=== PATIENT | male | born 1985 | race Caucasian/White ===

== ENCOUNTER 2017-06-05 13:35 | Emergency (ER) | payer SELFPAY ==
[~2017-06-05] VITALS: Ht 180.3 cm; Wt 90.0 kg
[2017-06-05 13:37] VITALS: BP 138/92; PULSE 68; RESP 24; TEMP 97.8; O2SAT 100
--- NOTE | 2017-06-05 13:52 | PD ---
HPI . left shoulder pain for 5 days Chief Complaint: Injury Time Seen by Provider: 13:55 Travel History International Travel<30 days: No Contact w/Intl Traveler<30days: No Traveled to known affect area: No History of Present Illness HPI 32-year-old male here with complaints of left shoulder pain. Patient says that he hurt his shoulder about 5 days ago when he was preparing for the [employer]. He denies any dislocation. He has range of motion, however it is limited due to pain. PFSH Past Medical History Diminished Hearing: No Past Surgical History Abdominal Surgery: Yes (PYLORIC STENOSIS) Other Surgery: Yes (SURGERY FOR PYLORIC STENOSIS A BABY) Social History Alcohol Use: Yes Tobacco Use: Yes Substance Use: No Allergies-Medications (Allergen,Severity, Reaction): Coded Allergies: lithium (Unverified Adverse Reaction, Unknown, THYROID DISORDER, 05/07/17) STATES IT GAVE HIM THYROID DISORDER & WEIGHT GAIN Reported Meds & Prescriptions Reported Meds & Active Scripts Active No Active Prescriptions or Reported Medications Review of Systems General / Constitutional: No: Fever Eyes: No: Visual changes HENT: No: Headaches Cardiovascular: No: Chest Pain or Discomfort Respiratory: No: Shortness of Breath Gastrointestinal: No: Abdominal Pain Genitourinary: No: Dysuria Musculoskeletal: Positive: Pain (left shoulder ) Skin: No Rash Neurologic: No: Weakness Psychiatric: No: Depression Endocrine: No: Polydipsia Hematologic/Lymphatic: No: Easy Bruising Physical Exam Narrative GENERAL: AAO x 3, no acute distress, Well-nourished, well-developed patient. SKIN: Warm and dry. No visible rashes or bruising. HEAD: Normocephalic and atraumatic. EYES: No scleral icterus. No injection or drainage. ENT: No nasal drainage noted. Mucous membranes pink. Airway patent. NECK: Supple, trachea midline. No JVD. CARDIOVASCULAR: Regular rate and rhythm without murmurs, gallops, or rubs. RESPIRATORY: Breath sounds equal bilaterally. No accessory muscle use. No rhonchi or rales. GASTROINTESTINAL: visual inspection normal EXTREMITIES: No cyanosis or edema. ROM left shoulder limited due to pain, internal rotation causes pain. BACK: No obvious deformity. NEURO: CN II-12 intact PSYCH: AAO x 3, normal affect. Data Data Last Documented VS Vital Signs Date Time Temp Pulse Resp B/P (MAP) Pulse Ox O2 Delivery O2 Flow Rate FiO2 06/05/17 13:46 Room Air 06/05/17 13:37 97.8 68 24 138/92 (107) 100 Orders Orders Ketorolac Inj (Toradol Inj) (06/05/17 14:00) Orphenadrine Inj (Norflex Inj) (06/05/17 14:00) Orphenadrine Inj (Norflex Inj) (06/05/17 14:01) Ketorolac Inj (Toradol Inj) (06/05/17 14:01) MDM Medical Decision Making Medical Screen Exam Complete: Yes Emergency Medical Condition: Yes Medical Record Reviewed: Yes Differential Diagnosis left shoulder pain, less likely dislocation, rotator cuff injury Narrative Course 32 year-old male here with complaints of left shoulder pain. On examination he does not appear to have any bony abnormality. I suspect a rotator cuff injury. I do not believe imaging is indicated. He has full range of motion of this joint, however it is limited due to pain. I recommend ibuprofen and Aleve. I provided him with a sling. Toradol and Norflex here in the ED. If his pain persists past 7-10 days, he will need to follow-up with primary care provider. I explained that ultimately he will need MRI imaging. Patient verbalized understanding of instructions, questions were answered, and thanked me for their care. I advised them if their condition worsens, please return to the nearest emergency room for further care. Diagnosis Primary Impression: Left shoulder pain Qualified Codes: M25.512 - Pain in left shoulder Additional Impression: Rotator cuff injury Qualified Codes: S46.001A - Unspecified injury of muscle(s) and tendon(s) of the rotator cuff of right shoulder, initial encounter Patient Instructions: General Instructions Additional Instructions: Please return to emergency department if your symptoms return or worsen. Follow up with your primary care provider. Ibuprofen and Aleve as needed. If pain persists past 7-10 days, follow-up with your primary care provider. Med/Other Pt SpecificInfo: No Change to Meds Scripts No Active Prescriptions or Reported Meds Disposition: 01 DISCHARGE HOME Condition: Stable Rosalia Fierro Jun 05, 2017 13:52
[2017-06-05] MEDS ORDERED: KETOROLAC TROMETHAMINE 60 MG/2 ML (IM) VIAL IM ONE ×2 (14:00→14:01)
[2017-06-05] MEDS ORDERED: ORPHENADRINE INJ 60 MG/2 ML AMP IM ONE (14:00)
[2017-06-05] MEDS ORDERED: ORPHENADRINE INJ 60 MG/2 ML AMP ONE (14:01)
== END 2017-06-06 13:25 | disposition home or self-care (01) ==
LOC: NETRI 13:35 → EDTENT 06-06 13:25
DX: M25.512 Pain in left shoulder (principal); S46.001A Unspecified injury of muscle(s) and tendon(s) of the rotator cuff of right shoulder, initial encounter; X58.XXXA Exposure to other specified factors, initial encounter; X37.0XXA Hurricane, initial encounter
CPT/HCPCS: 96372; 99284; J1885; J2360